=== PATIENT | female | born 1970 | race Caucasian/White ===

== ENCOUNTER → 2016-12-19 | Outpatient (CLI) | payer BC ==
[~2016-12-19] MED LIST: FEOSOL PO; IBUP-103 PO; NORE-38 PO
--- NOTE | 2016-12-19 16:44 | MAMMOGRAPHY REPORT ---
BILATERAL DIGITAL SCREENING MAMMOGRAM TOMOSYNTHESIS WITH CAD: 12/19/2016 TECHNIQUE: Breast tomosynthesis in addition to standard 2D mammography was performed. Current study was also evaluated with a Computer Aided Detection (CAD) system. COMPARISON: Comparison is made to exams dated: 12/18/2015 mammogram, 12/15/2014 mammogram, 12/28/2014 ul trasound, and 12/28/2014 mammogram - [facility]. BREAST COMPOSITION: There are scattered areas of fibroglandular density in both breasts. FINDINGS: No suspicious masses, calcifications, or areas of architectural distortion are noted in e ither breast. There has been no significant interval change compared to prior exams. Scattered bilat eral benign-appearing calcifications are not significantly changed. IMPRESSION: ACR BI-RADS CATEGORY 2: BENIGN There is no mammographic evidence of malignancy. A 1 year screening mammogram is recommended. The p atient will receive written notification of the results. Approximately 10% of breast cancers are not detected with mammography. A negative mammographic repor t should not delay biopsy if a clinically suggestive mass is present. Claire Green M.D. ah/:12/19/2016 15:44:42 [employer] Manager: Nenita SIMMONS(R)(M), [facility] letter sent: Normal 1/2 BI-RADS Code: ACR BI-RADS Category 2: Benign
== END | disposition home or self-care (01) ==
LOC: C.MAMM 10:03
PROVIDERS: ATTEND Family Medicine
DX: Z12.31 Encounter for screening mammogram for malignant neoplasm of breast (principal)

== ENCOUNTER → 2017-03-17 | Outpatient (CLI) | payer BC ==
[~2017-03-17] MED LIST changes: +GADAVIST IV PRN
--- NOTE | 2017-03-17 11:42 | DIAGNOSTIC IMAGING REPORT ---
ABDOMINAL MRI WITH AND WITHOUT INTRAVENOUS CONTRAST HISTORY: Evaluate CYST ON PANCREAS TECHNIQUE: Multiplanar multisequence MRI of the abdomen was performed both before and after the use of intravenous contrast. COMPARISON STUDY: Abdominal MRI 01/18/2016. FINDINGS: The liver, spleen, adrenal glands, left kidney are unremarkable. There is a 3 mm cyst within the lower pole the right kidney. No hydronephrosis. No retroperitoneal lymphadenopathy. Normal gallbladder. The visualized loops of bowel show no wall thickening or obstruction. There again noted 3 cystic lesions within the pancreas. The 2 lobular cystic foci at the pancreatic body measured 11 9 mm and remain unchanged. 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 The main pancreatic duct is normal and course and caliber. No filling defects within the normal caliber common bile duct. There is also stable 9 mm cystic lesion abutting the anterior inferior surface of the pancreatic head. This does not connect to the main pancreatic duct. This could represent an exophytic serous cystadenoma or a small duplication cyst. There is a 4.6 cm intramural fibroid within the left side of the uterus. IMPRESSION: Stable cystic lesions within the pancreas as described above. An additional one year MRI follow can be performed to ensure stability. Electronically signed by: Raúl Segura M.D. 03/17/2017 11:40 AM Dictated Date/Time: 03/17/2017 11:31 AM
== END | disposition home or self-care (01) ==
LOC: C.MRI 09:56
PROVIDERS: ATTEND Internal Medicine Gastroenterology
DX: K86.2 Cyst of pancreas (principal)

== ENCOUNTER → 2017-12-25 | Outpatient (CLI) | payer BC ==
[~2017-12-25] MED LIST changes: -GADAVIST IV PRN
--- NOTE | 2017-12-25 14:59 | MAMMOGRAPHY REPORT ---
BILATERAL DIGITAL SCREENING MAMMOGRAM TOMOSYNTHESIS WITH CAD: 12/25/2017 CLINICAL HISTORY: Routine screening. Patient has no complaints. TECHNIQUE: Breast tomosynthesis in addition to standard 2D mammography was performed. Current study was also evaluated with a Computer Aided Detection (CAD) system. COMPARISON: Comparison is made to exams dated: 12/19/2016 mammogram, 12/18/2015 mammogram, 12/28/2014 ma mmogram, 12/28/2014 ultrasound, and 12/15/2014 mammogram - [facility]. BREAST COMPOSITION: There are scattered areas of fibroglandular density in both breasts. FINDINGS: No suspicious masses, calcifications, or areas of architectural distortion are noted in ei ther breast. There has been no significant interval change compared to prior exams. Scattered bilater al benign-appearing calcifications are not significantly changed. Small circumscribed benign-appeari ng mass in the left central breast is smaller compared to the 2015 exam and is benign and compatible with a cyst. IMPRESSION: ACR BI-RADS CATEGORY 2: BENIGN There is no mammographic evidence of malignancy. A 1 year screening mammogram is recommended. The pa tient will receive written notification of the results. Approximately 10% of breast cancers are not detected with mammography. A negative mammographic report should not delay biopsy if a clinically suggestive mass is present. Claire Green M.D. /:12/25/2017 12:29:18 Campaign Consultant: Maria D CARDONA)([place]), [facility] letter sent: Normal 1/2 BI-RADS Code: ACR BI-RADS Category 2: Benign
== END | disposition home or self-care (01) ==
LOC: C.MAMM 09:42
PROVIDERS: ATTEND Nurse Practitioner Family
DX: Z12.31 Encounter for screening mammogram for malignant neoplasm of breast (principal)

== ENCOUNTER 2024-08-09 09:56 | Inpatient (IN) ==
--- NOTE | 2024-08-09 10:14 | Emergency Department Note ---
Impression & Plan Pyelonephritis, UTI (urinary tract infection), Acute flank pain, Hypotension ED Provider Note NAME: ERNST HALEY AGE: 54 SEX: F : 1970 ARRIVES VIA: Ambulance INFORMANT: Patient ED PROVIDER(S): Jose Peck DO CHIEF COMPLAINT: Right flank pain HPI: Patient is a 54-year-old female who presents to the ER for right flank pain. She notes she was treated for UTI previously and just finished up antibiotics. She started having severe pain in the right flank. She she got up this morning as any kind of movement including twisting, turning, bending that makes it significantly worse. The pain got severe and she became lightheaded and sat down. She did pass out. She notes that she has severe pain with any movement. No chest pain or shortness of breath preceding or following the event. After she passed out which lasted for about 30 seconds per report from EMS she had nausea. No dysuria, urgency, or frequency. No other exacerbating or remitting factors. She notes that she was on antibiotics for UTI and finished them up about 5 days ago. She was having burning with urination at that time. The symptoms have resolved. ADDITIONAL HISTORY OBTAINED: Per HPI Chronic Medical/Social Conditions Affecting Care: Per HPI PAST MEDICAL HISTORY:See Below PAST SURGICAL HISTORY:See Below FAMILY HISTORY:See Below SOCIAL HISTORY:See Below HOME MEDICATIONS:See Below ALLERGIES:See Below VITALS:See Below PHYSICAL EXAMINATION: GENERAL: Sitting up in bed, alert, well appearing, well nourished, no distress, non-toxic EYE EXAM: normal conjunctiva. OROPHARYNX: no exudate, no erythema, lips, buccal mucosa, and tongue normal and mucous membranes are moist NECK: supple, no nuchal rigidity, no adenopathy, non-tender LUNGS: Clear to auscultation. Normal chest wall mechanics HEART: no murmurs, S1 normal and S2 normal ABDOMEN: abdomen soft, non-tender, normo-active bowel sounds, no masses, no rebound or guarding. BACK: Back is symmetrical on inspection and there is no deformity, no midline tenderness, no CVA tenderness but severe pain in the right lower lumbar paraspinal region. UPPER EXTREMITIES: upper extremities are grossly normal. LOWER EXTREMITIES: No pitting edema. NEURO EXAM: Normal sensorium, cranial nerves II-XII grossly intact, normal speech, no gross weakness of arms, no gross weakness of legs. No drift. Finger to nose intact. Gross sensation intact. MEDICAL DECISION MAKING: Patient is a 54-year-old female who presents ER for the above-stated complaint. IV was established medicos obtained. Labs show no significant leukocytosis or anemia. D-dimer was negative and a low risk patient would not be pursued any further. BMP along with LFTs bilirubin and lipase unremarkable. Troponin was negative. UA is consistent with UTI. CT abdomen pelvis and lumbar spine showed no acute pathology. Chest x-ray was clean. Patient was updated at bedside. Systolic blood pressures dropped into the 80s. Baselines appear to be 120s to 130s. Was given IV fluids. IV antibiotics. Updated bedside. Discussed case with the hospitalist for further evaluation in the setting of syncope with hypotension and UTI. Consults/Care Managements Discussions: Per [facility] Triage Nursing notes reviewed. Limited review of prior medical records performed Vital Signs: reviewed and remarkable for no significant abnormalities Differential diagnosis: Differential diagnosis includes etiologies such as vasovagal event, infection, hypoglycemia, electrolyte abnormalities, cardiac sources, intracerebral event, toxicologic, neurologic, as well as others were entertained. ER treatment provided: See below Diagnostics interpreted by me include EKG and cardiac monitoring as listed below: -Cardiac Monitoring: An order was placed for continuous cardiac monitoring. The monitor shows a rate of 70 with sinus rhythm. -ECG: Sinus rhythm rate of 69 Normal axis No PVCs QTc 458 -Laboratory studies:Interpreted by me as stated above in MDM and shown below. Imaging studies: Xrays: As interpreted by me: Portable AP report 1 view of the chest shows no focal M-Trate CTs show: CT abdomen pelvis and lumbar spine showed no acute pathology Procedures:none Critical Care: None Past Med/Surg History Problem List (Updated 08/09/24 @ 16:48 by Raúl Muñiz PA-C) Hypotension Hypothyroidism Pyelonephritis Syncope Paresthesia of arm Pain, generalized Sjogren syndrome, unspecified Screening for colon cancer Leiomyoma of uterus Encounter for prescription of oral contraceptives Encounter for gynecological examination with abnormal finding Menorrhagia with regular cycle Medical History (Updated 08/09/24 @ 16:48 by Raúl Muñiz PA-C) 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 with MRIs/EGDs Anemia H/O weight disorder H/O alopecia Leiomyoma of uterus Menorrhagia with regular cycle Iron deficiency anemia due to chronic blood loss Surgical History (Updated 01/08/22 @ 09:05 by Krupa Peña RN) History of esophagogastroduodenoscopy (EGD) History of colonoscopy History of abdominoplasty History of wisdom tooth extraction S/P tubal ligation S/P section x2 Family History (Updated 01/08/22 @ 09:06 by Krupa Peña RN) Father Cardiac disorder Mother Hypertension Family history of reaction to anesthesia difficulty waking Social History (Updated 12/03/21 @ 09:[address] LPN) Smoking Status: Never smoker Second Hand Exposure: No; Do You Dip or Chew Tobacco: No; Hx Alcohol Use: No Hx Substance Use: No Preferred Language: Barbadian Communication Ability: Effective Head Inspector Required: No Beliefs That Will Affect Care: None marital status: Current Living Situation: Spouse and Family Current Living Situation Comment: lives with and kids Feels Safe at Home: Yes Assistive Devices: Glasses Allergies Allergies Allergy/AdvReac Type Severity Reaction Status Date / Time black cohosh [From Estroven] Allergy Intermediate Hives Verified 03/04/24 11:49 gabapentin Allergy Intermediate DIzziness Verified 03/04/24 11:49 and severe anxiety magnolia bark [From Estroven] Allergy Intermediate Hives Verified 03/04/24 11:49 soybean [From Estroven] Allergy Intermediate Hives Verified 03/04/24 11:49 Home Meds Home Medications Medication Instructions Recorded Confirmed levothyroxine 75 mcg capsule 75 mcg PO DAILY 07/09/23 03/04/24 cyclobenzaprine 5 mg tablet 5 mg PO DIRECTED 08/09/24 Previous Rx's Medication Instructions Recorded hydroxychloroquine 200 mg tablet 200 mg PO DAILY #90 tabs 06/22/24 Results & Data (ED) Vital Signs Vital Signs - 24 hr 08/09/24 10:01 08/09/24 10:05 08/09/24 12:10 Temperature 36.5 C Temperature Source Temporal Artery Scan Pulse Rate 77 72 Pulse Rate [Left Apical] 66 Respiratory Rate 16 16 Respiratory Effort / Characteristics Non-Labored Spontaneous Non-Labored Spontaneous Respiratory Depth Normal Normal Respiratory Pattern Regular Regular Blood Pressure 114/59 L Blood Pressure [Left Arm] 103/67 Blood Pressure Mean 77 Blood Pressure Mean [Left Arm] 79 Blood Pressure Position Sitting Blood Pressure Position [Left Arm] Semi-fowlers Pulse Oximetry 98 100 Oxygen Delivery Method Room Air Room Air Sepsis Recent Fever Within 48 Hours No Sepsis New/Unexplained Change in Mental Status N/A Sepsis Action Taken by Nursing No Action Required 08/09/24 12:27 08/09/24 12:30 08/09/24 12:33 Temperature Temperature Source Pulse Rate 64 66 Pulse Rate [Left Apical] Respiratory Rate 17 14 Respiratory Effort / Characteristics Respiratory Depth Respiratory Pattern Blood Pressure 107/64 Blood Pressure [Left Arm] Blood Pressure Mean 75 Blood Pressure Mean [Left Arm] Blood Pressure Position Blood Pressure Position [Left Arm] Pulse Oximetry 99 98 Oxygen Delivery Method Room Air Room Air Sepsis Recent Fever Within 48 Hours Sepsis New/Unexplained Change in Mental Status Sepsis Action Taken by Nursing 08/09/24 13:03 08/09/24 13:33 08/09/24 13:42 Temperature Temperature Source Pulse Rate 67 68 69 Pulse Rate [Left Apical] Respiratory Rate 22 16 21 Respiratory Effort / Characteristics Respiratory Depth Respiratory Pattern Blood Pressure Blood Pressure [Left Arm] Blood Pressure Mean Blood Pressure Mean [Left Arm] Blood Pressure Position Blood Pressure Position [Left Arm] Pulse Oximetry 100 100 99 Oxygen Delivery Method Room Air Room Air Room Air Sepsis Recent Fever Within 48 Hours Sepsis New/Unexplained Change in Mental Status Sepsis Action Taken by Nursing 08/09/24 14:06 08/09/24 14:30 08/09/24 14:31 Temperature Temperature Source Pulse Rate 69 74 Pulse Rate [Left Apical] Respiratory Rate 17 Respiratory Effort / Characteristics Respiratory Depth Respiratory Pattern Blood Pressure 89/62 L Blood Pressure [Left Arm] Blood Pressure Mean 69 Blood Pressure Mean [Left Arm] Blood Pressure Position Blood Pressure Position [Left Arm] Pulse Oximetry 97 Oxygen Delivery Method Room Air Sepsis Recent Fever Within 48 Hours Sepsis New/Unexplained Change in Mental Status Sepsis Action Taken by Nursing 08/09/24 14:47 08/09/24 14:54 08/09/24 15:01 Temperature Temperature Source Pulse Rate 73 75 Pulse Rate [Left Apical] Respiratory Rate 16 Respiratory Effort / Characteristics Respiratory Depth Respiratory Pattern Blood Pressure 85/65 L Blood Pressure [Left Arm] Blood Pressure Mean 68 Blood Pressure Mean [Left Arm] Blood Pressure Position Blood Pressure Position [Left Arm] Pulse Oximetry 96 Oxygen Delivery Method Room Air Sepsis Recent Fever Within 48 Hours Sepsis New/Unexplained Change in Mental Status Sepsis Action Taken by Nursing 08/09/24 15:03 08/09/24 15:31 08/09/24 15:33 Temperature Temperature Source Pulse Rate 74 70 Pulse Rate [Left Apical] 70 Respiratory Rate 15 18 16 Respiratory Effort / Characteristics Non-Labored Spontaneous Respiratory Depth Normal Respiratory Pattern Regular Blood Pressure Blood Pressure [Left Arm] 88/54 L Blood Pressure Mean Blood Pressure Mean [Left Arm] 65 Blood Pressure Position Blood Pressure Position [Left Arm] Pulse Oximetry 99 99 99 Oxygen Delivery Method Room Air Room Air Room Air Sepsis Recent Fever Within 48 Hours Sepsis New/Unexplained Change in Mental Status Sepsis Action Taken by Nursing 08/09/24 15:45 08/09/24 15:54 08/09/24 15:57 Temperature Temperature Source Pulse Rate 69 66 67 Pulse Rate [Left Apical] Respiratory Rate 20 15 21 Respiratory Effort / Characteristics Respiratory Depth Respiratory Pattern Blood Pressure Blood Pressure [Left Arm] Blood Pressure Mean Blood Pressure Mean [Left Arm] Blood Pressure Position Blood Pressure Position [Left Arm] Pulse Oximetry 99 99 99 Oxygen Delivery Method Room Air Room Air Room Air Sepsis Recent Fever Within 48 Hours Sepsis New/Unexplained Change in Mental Status Sepsis Action Taken by Nursing 08/09/24 16:00 08/09/24 16:06 08/09/24 16:27 Temperature Temperature Source Pulse Rate 65 Pulse Rate [Left Apical] Respiratory Rate 16 Respiratory Effort / Characteristics Respiratory Depth Respiratory Pattern Blood Pressure 108/67 Blood Pressure [Left Arm] Blood Pressure Mean 73 Blood Pressure Mean [Left Arm] Blood Pressure Position Blood Pressure Position [Left Arm] Pulse Oximetry 100 99 Oxygen Delivery Method Room Air Sepsis Recent Fever Within 48 Hours Sepsis New/Unexplained Change in Mental Status Sepsis Action Taken by Nursing Laboratory Data 08/09/24 10:08 08/09/24 10:08 Lab Results 08/09/24 08/09/24 08/09/24 Range/Units 10:08 12:49 13:00 WBC 7.68 (4.8-10.8) K/ul RBC 4.36 (4.20-5.40) M/uL Hgb 13.2 (12.0-16.0) g/dl Hct 40.2 (37.0-47.0) % MCV 92.2 (80.0-100.0) fL MCH 30.3 (25.0-34.0) pg MCHC 32.8 (32.0-36.0) g/dL RDW Std Deviation 46.6 H (36.4-46.3) fL RDW Coeff of Meredith 13.6 (11.5-14.5) % Plt Count 253 (130-400) K/uL MPV 10.5 (9.4-12.4) fL Immature Gran % (Auto) 0.4 % Neut % (Auto) 72.9 % Lymph % (Auto) 21.0 % Woodruff % (Auto) 3.3 % Eos % (Auto) 1.7 % Baso % (Auto) 0.7 % Neut # (Auto) 5.61 (1.40-6.50) K/uL Lymph # (Auto) 1.61 (1.20-3.40) K/uL Woodruff # (Auto) 0.25 (0.11-0.59) K/uL Eos # (Auto) 0.13 (0.00-0.50) K/uL Baso # (Auto) 0.05 (0.00-0.20) K/uL Immature Gran # (Auto) 0.03 (0.01-0.20) K/uL D-Dimer 320 (0-500) ug/L FEU Sodium 139 (136-145) mmol/L Potassium 4.5 (3.5-5.1) mmol/L Chloride 105 (98-107) mmol/L Carbon Dioxide 24 (21-32) mmol/L Anion Gap 10 (3-11) BUN 17 (6-23) mg/dl Creatinine 0.86 (0.6-1.2) mg/dl Est Cr Clr Drug Dosing 60.0 ml/min Est GFR ( Amer) 88.8 ml/min Est GFR (Non-Af Amer) 76.6 ml/min BUN/Creatinine Ratio 19.8 (10-20) Glucose 156 H (70-99(Fasting)) mg/dl Calcium 9.8 (8.6-10.3) mg/dl Total Bilirubin 0.5 (0.2-1.0) mg/dl AST 17 (13-39) U/L ALT 16 (7-52) U/L Alkaline Phosphatase 59 (34-104) U/L Troponin I High Sens Cancelled 2.4 Total Protein 7.2 (6.0-8.3) gm/dl Albumin 4.5 (3.4-5.0) gm/dl Globulin 2.7 (2.5-4.0) gm/dl Albumin/Globulin Ratio 1.7 (0.9-2) Lipase 19 (11-82) U/L Urine Color Yellow Urine Appearance Clear (Clear) Urine pH 6.5 (4.5-7.5) Ur Specific [place] 1.017 (1.000-1.030) Urine Protein Negative (Negative) Urine Glucose (UA) Negative (Negative) Urine Ketones 1+ H (Negative) Urine Blood Trace H (Negative) Urine Nitrite Negative (Negative) Urine Bilirubin Negative (Negative) Urine Urobilinogen Negative (Negative) Ur Leukocyte Esterase 3+ H (Negative) Urine WBC (Auto) >50 H (0-5) /hpf Urine RBC (Auto) 0-2 (0-2) /hpf U Hyaline Cast (Auto) 0-2 (0-2) /lpf U Epithel Cells (Auto) 3-5 H (0-2) /hpf Urine Bacteria (Auto) None Seen (None Seen) 08/09/24 08/09/24 Range/Units 15:04 Unknown WBC (4.8-10.8) K/ul RBC (4.20-5.40) M/uL Hgb (12.0-16.0) g/dl Hct (37.0-47.0) % MCV (80.0-100.0) fL MCH (25.0-34.0) pg MCHC (32.0-36.0) g/dL RDW Std Deviation (36.4-46.3) fL RDW Coeff of Meredith (11.5-14.5) % Plt Count (130-400) K/uL MPV (9.4-12.4) fL Immature Gran % (Auto) % Neut % (Auto) % Lymph % (Auto) % Woodruff % (Auto) % Eos % (Auto) % Baso % (Auto) % Neut # (Auto) (1.40-6.50) K/uL Lymph # (Auto) (1.20-3.40) K/uL Woodruff # (Auto) (0.11-0.59) K/uL Eos # (Auto) (0.00-0.50) K/uL Baso # (Auto) (0.00-0.20) K/uL Immature Gran # (Auto) (0.01-0.20) K/uL D-Dimer (0-500) ug/L FEU Sodium (136-145) mmol/L Potassium (3.5-5.1) mmol/L Chloride (98-107) mmol/L Carbon Dioxide (21-32) mmol/L Anion Gap (3-11) BUN (6-23) mg/dl Creatinine (0.6-1.2) mg/dl Est Cr Clr Drug Dosing ml/min Est GFR ( Amer) ml/min Est GFR (Non-Af Amer) ml/min BUN/Creatinine Ratio (10-20) Glucose (70-99(Fasting)) mg/dl Calcium (8.6-10.3) mg/dl Total Bilirubin (0.2-1.0) mg/dl AST (13-39) U/L ALT (7-52) U/L Alkaline Phosphatase (34-104) U/L Troponin I High Sens < 2.3 Cancelled Total Protein (6.0-8.3) gm/dl Albumin (3.4-5.0) gm/dl Globulin (2.5-4.0) gm/dl Albumin/Globulin Ratio (0.9-2) Lipase (11-82) U/L Urine Color Urine Appearance (Clear) Urine pH (4.5-7.5) Ur Specific [place] (1.000-1.030) Urine Protein (Negative) Urine Glucose (UA) (Negative) Urine Ketones (Negative) Urine Blood (Negative) Urine Nitrite (Negative) Urine Bilirubin (Negative) Urine Urobilinogen (Negative) Ur Leukocyte Esterase (Negative) Urine WBC (Auto) (0-5) /hpf Urine RBC (Auto) (0-2) /hpf U Hyaline Cast (Auto) (0-2) /lpf U Epithel Cells (Auto) (0-2) /hpf Urine Bacteria (Auto) (None Seen) Administered Medications Sodium Chloride (Nss) 1,000 mls @ 999 mls/hr IV .Q1H1M ONE Stop: 08/09/24 16:40 Last Admin: 08/09/24 15:53 Dose: 999 mls/hr Documented By: DM Discontinued Medications Sodium Chloride (Nss) 1,000 mls @ 999 mls/hr IV .Q1H1M ONE Stop: 08/09/24 11:11 Last Infusion: 08/09/24 12:11 Dose: Infused Documented By: Admin: 08/09/24 10:22 Dose: 999 mls/hr Documented By: LIZZETH Ceftriaxone Sodium (Rocephin) 2,000 mg in 50 mls @ 100 mls/hr IV NOW STA Stop: 08/09/24 14:43 Last Infusion: 08/09/24 15:29 Dose: Infused Documented By: Admin: 08/09/24 14:27 Dose: 100 mls/hr Documented By: MEHUL Ioversol (Optiray 320 100ml) 92 ml IV ONCE ONE Stop: 08/09/24 13:26 Last Admin: 08/09/24 13:25 Dose: 92 ml Documented By: MY Ketorolac Tromethamine (Ketorolac Tromethamine 15 Mg/Ml Vial) 10 mg IV NOW ONE Stop: 08/09/24 10:12 Last Admin: 08/09/24 10:25 Dose: 10 mg Documented By: LIZZETH Morphine Sulfate (Morphine Sulfate 4 Mg/Ml 1 Ml Carp\Vial) 4 mg IV NOW STA Stop: 08/09/24 10:13 Last Admin: 08/09/24 10:24 Dose: 4 mg Documented By: LIZZETH Imaging Data Radiologist's Impression: Chest X-Ray 08/09/24 10:10 XR chest 1V portable HISTORY: 54 years-old Female Chest pain, nonspecific COMPARISON: 03/29/2021 TECHNIQUE: AP view of the chest FINDINGS: Cardiomediastinal and hilar silhouettes are within normal limits. No pneumothorax, pleural effusion or airspace consolidation. Bones appear intact. IMPRESSION: No acute process. ACT 112: Negative or not required by law. The above report was generated using voice recognition software. It may contain grammatical, syntax or spelling errors. Electronically signed by: Young Rayo M.D. 08/09/2024 10:[address] 08/09/24 10:11 CT lumbar spine w con HISTORY: 54 years-old Female lower back pain . Back pain COMPARISON: CT abdomen and pelvis of same day TECHNIQUE: Multiple axial CT images of the lumbar spine were obtained with IV contrast. A dose lowering technique was used consistent with the principals of FRANSISCA. FINDINGS: Clear lung bases. No free air. The intra-abdominal structures will be dictated separately. Partially imaged rectal wall thickening with probable uterine fibroids. Mild lumbar levoscoliosis. No acute fracture, subluxation or endplate erosion. There is mild to moderate degeneration of the SI joints. No significant central canal or neural foraminal narrowing identified by CT. Intervertebral disc spaces are generally well maintained. IMPRESSION: 1. No acute lumbar spine fracture or subluxation. 2. Mild levoscoliosis. 3. Please refer to the same day CT abdomen and pelvis study for additional findings. ACT 112: Negative or not required by law. The above report was generated using voice recognition software. It may contain grammatical, syntax or spelling errors. Electronically signed by: Young Rayo M.D. 08/09/2024 2:00 PM Abdomen/Pelvis CT 08/09/24 12:26 CT abd pelvis IV con only CLINICAL HISTORY: abd pain adn r back pain TECHNIQUE: Helical axial images of the abdomen and pelvis were obtained and displayed. Automated dose lowering techniques and/or adjustment according to patient size were utilized for this exam. This exam was performed with intravenous contrast. COMPARISON: Comparison is made to MRI abdomen 09/04/2022 and MRI enterography 04/28/2018 FINDINGS: Lower chest: No acute abnormality. Liver: Unremarkable. No focal lesions are seen. Gallbladder and biliary tree: No calcified gallstones. Normal caliber wall. No intra- or extrahepatic biliary ductal dilation. Pancreas: A few cystic foci are seen in the pancreas compatible with IPMN. Spleen: Unremarkable. Adrenals: Unremarkable. Kidneys and ureters: Unremarkable. Bladder: Limited evaluation due to underdistention. Reproductive organs: Partial visualization of a enhancing mass at the base of the uterus measuring 44 mm. Bowel: The appendix is normal. Lymph nodes Retroperitoneal: Unremarkable. Pelvic: Unremarkable. Mesenteric: Unremarkable. Peritoneum: Normal. Vessels: Unremarkable. Abdominal wall: Unremarkable. Bones: Unremarkable. IMPRESSION: 1. No acute abnormality to explain abdominal and back pain. 2. Basal uterus mass likely represents a fibroid and was present in the exam of 2018. ACT 112: Negative or not required by law. Electronically signed by: Seb Carver M.D. 08/09/2024 2:15 PM Discharge Plan Visit Data Chief Complaint: Syncope ED Provider: Jose Peck Discharge Problem: Pyelonephritis, UTI (urinary tract infection), Acute flank pain, Hypotension Forms Stand Alone Forms: [facility] Prescriptions Prescriptions: No Action hydroxychloroquine 200 mg tablet 200 mg PO DAILY Qty: 90 2RF levothyroxine 75 mcg capsule 75 mcg PO DAILY cyclobenzaprine 5 mg tablet 5 mg PO DIRECTED Referrals Referrals: Wendy Cook MD [Primary Care Provider] - Discharge Problem: UTI (urinary tract infection) Qualifiers: Urinary tract infection type: site unspecified Hematuria presence: without hematuria Qualified Code(s): N39.0 - Urinary tract infection, site not specified Hypotension Qualifiers: Hypotension type: unspecified hypotension type Qualified Code(s): I95.9 - Hypotension, unspecified
[2024-08-09] MEDS: SODIUM CHLORIDE 0.9% 1,000 ML IV ONE ×2 (10:22→15:53)
[2024-08-09] MEDS: MoRPHine SULFATE 4 MG/ML 1 ML CARP\\VIAL IV STA (10:24)
[2024-08-09] MEDS: KETOROLAC TROMETHAMINE 15 MG/ML VIAL IV ONE (10:25)
[2024-08-09 10:27] LABS: Basophils # (auto) 0.05 K/uL (0.00-0.20); Basophils % (auto) 0.7 %; Eosinophils # (auto) 0.13 K/uL (0.00-0.50); Eosinophils % (auto) 1.7 %; Hematocrit (blood only) 40.2 % (37.0-47.0); Hemoglobin 13.2 g/dl (12.0-16.0); Immature Granulocytes # (auto) 0.03 K/uL (0.01-0.20); Immature Granulocytes % (auto) 0.4 %; Lymphocytes # (auto) 1.61 K/uL (1.20-3.40); Mean Corpuscular Hemoglobin 30.3 pg (25.0-34.0); Mean Corpuscular Hgb Conc 32.8 g/dL (32.0-36.0); Mean Corpuscular Volume 92.2 fL (80.0-100.0); Mean Platelet Volume 10.5 fL (9.4-12.4); Monocytes # (auto) 0.25 K/uL (0.11-0.59); Monocytes % (auto) 3.3 %; Neutrophils # (auto) 5.61 K/uL (1.40-6.50); Neutrophils % (auto) 72.9 %; Platelet Count 253 K/uL (130-400); RDW Coefficient of Variation 13.6 % (11.5-14.5); RDW Standard Deviation 46.6 fL (36.4-46.3); Red Blood Count 4.36 M/uL (4.20-5.40); White Blood Count 7.68 K/ul (4.8-10.8)
--- NOTE | 2024-08-09 10:34 | XRay Report ---
XR chest 1V portable HISTORY: 54 years-old Female Chest pain, nonspecific COMPARISON: 03/29/2021 TECHNIQUE: AP view of the chest FINDINGS: Cardiomediastinal and hilar silhouettes are within normal limits. No pneumothorax, pleural effusion o r airspace consolidation. Bones appear intact. IMPRESSION: No acute process. ACT 112: Negative or not required by law. The above report was generated using voice recognition software. It may contain grammatical, syntax o r spelling errors. Electronically signed by: Young Rayo M.D. 08/09/2024 10:33 AM
--- NOTE | 2024-08-09 11:07 | Electrocardiogram Report ---
Test Reason : Blood Pressure : */* mmHG Vent. Rate : 69 BPM Atrial Rate : 69 BPM P-R Int : 150 ms QRS Dur : 66 ms QT Int : 428 ms P-R-T Axes : 81 43 84 degrees QTcB Int : 458 ms Normal sinus rhythm Nonspecific T wave abnormality Abnormal ECG When compared with ECG of 29-Mar-2021 17:37, Nonspecific T wave abnormality now evident in Lateral leads Confirmed by Jamarcus Valadez ([id number]) on 08/09/2024 11:06:45 AM Referred By: Confirmed By: Jamarcus Valadez
[2024-08-09 11:14] LABS: D Dimer 320 ug/L FEU (0-500)
[2024-08-09 12:49] LABS: Albumin Level 4.5 gm/dl (3.4-5.0); Bilirubin,Total 0.5 mg/dl (0.2-1.0); Calcium 9.8 mg/dl (8.6-10.3); Potassium 4.5 mmol/L (3.5-5.1)
[2024-08-09 12:55] LABS: Albumin Globulin Ratio 1.7 (0.9-2); BUN Creatinine Ratio 19.8 (10-20); Est GFR (African American) 88.8 ml/min; Est GFR (Non-African American) 76.6 ml/min; Globulin 2.7 gm/dl (2.5-4.0); Total Protein 7.2 gm/dl (6.0-8.3)
[2024-08-09 13:23] LABS: Appearance Urine Clear (Clear); Bacteria Urine Automated None Seen (None Seen); Bilirubin Urine Negative (Negative); Blood Urine Trace (Negative); Cast Urine Automated 0-2 /lpf (0-2); Color Urine Yellow; Glucose Urine UA Negative (Negative); Ketones Urine 1+ (Negative); Leukocyte Esterase Urine 3+ (Negative); Nitrite Urine Negative (Negative); Protein Urine Negative (Negative); RBC Urine Automated 0-2 /hpf (0-2); Specific Gravity Urine 1.017 (1.000-1.030); Urobilinogen Urine Negative (Negative); WBC Urine Automated >50 /hpf (0-5); pH Urine 6.5 (4.5-7.5)
[2024-08-09] MEDS: OPTIRAY 320 100ml IV ONE (13:25)
--- NOTE | 2024-08-09 14:02 | CT Scan Report ---
CT lumbar spine w con HISTORY: 54 years-old Female lower back pain . Back pain COMPARISON: CT abdomen and pelvis of same day TECHNIQUE: Multiple axial CT images of the lumbar spine were obtained with IV contrast. A dose loweri ng technique was used consistent with the principals of FRANSISCA. FINDINGS: Clear lung bases. No free air. The intra-abdominal structures will be dictated separately. Partially imaged rectal wall thickening with probable uterine fibroids. Mild lumbar levoscoliosis. No acute fracture, subluxation or endplate erosion. There is mild to moder ate degeneration of the SI joints. No significant central canal or neural foraminal narrowing identif ied by CT. Intervertebral disc spaces are generally well maintained. IMPRESSION: 1. No acute lumbar spine fracture or subluxation. 2. Mild levoscoliosis. 3. Please refer to the same day CT abdomen and pelvis study for additional findings. ACT 112: Negative or not required by law. The above report was generated using voice recognition software. It may contain grammatical, syntax o r spelling errors. Electronically signed by: Young Rayo M.D. 08/09/2024 2:00 PM
--- NOTE | 2024-08-09 14:17 | CT Scan Report ---
CT abd pelvis IV con only CLINICAL HISTORY: abd pain adn r back pain TECHNIQUE: Helical axial images of the abdomen and pelvis were obtained and displayed. Automated dose lowering techniques and/or adjustment according to patient size were utilized for this exam. This e xam was performed with intravenous contrast. COMPARISON: Comparison is made to MRI abdomen 09/04/2022 and MRI enterography 04/28/2018 FINDINGS: Lower chest: No acute abnormality. Liver: Unremarkable. No focal lesions are seen. Gallbladder and biliary tree: No calcified gallstones. Normal caliber wall. No intra- or extrahepatic biliary ductal dilation. Pancreas: A few cystic foci are seen in the pancreas compatible with IPMN. Spleen: Unremarkable. Adrenals: Unremarkable. Kidneys and ureters: Unremarkable. Bladder: Limited evaluation due to underdistention. Reproductive organs: Partial visualization of a enhancing mass at the base of the uterus measuring 44 mm. Bowel: The appendix is normal. Lymph nodes Retroperitoneal: Unremarkable. Pelvic: Unremarkable. Mesenteric: Unremarkable. Peritoneum: Normal. Vessels: Unremarkable. Abdominal wall: Unremarkable. Bones: Unremarkable. IMPRESSION: 1. No acute abnormality to explain abdominal and back pain. 2. Basal uterus mass likely represents a fibroid and was present in the exam of 2018. ACT 112: Negative or not required by law. Electronically signed by: Seb Carver M.D. 08/09/2024 2:15 PM
[2024-08-09] MEDS: cefTRIAXone SODIUM 2,000 MG/50 ML BAG IV STA (14:27)
--- NOTE | 2024-08-09 15:59 | History & Physical Report ---
Date of Service August 09, 2024 Assessment & Plan (1) Syncope: Plan: 45-second syncopal episode on the morning of 08/09 Patient felt dizzy and knew she was about to faint and sat down; no head strike No history of syncope Patient attributes passing out to her severe right lower back pain, which has been worsening over the past 2 days Will defer echo at this time Continuous telemetry monitoring A.m. CBC, BMP (2) Pyelonephritis: Plan: Suspected right sided pyelonephritis secondary to worsening of right lower back pain with radiation along the flank to the groin Patient recently finished a course of Keflex 500 mg p.o. BID x 7 days for UTI (Rx on 07/26) No leukocytosis; afebrile UA positive on ED arrival CT A/P was done with contrast; unable to rule out kidney stone; no prior history of kidney stones Clinically, patient's burning with urination and hematuria have resolved Rocephin 2000 mg IV q24h Follow current UCx (3) Hypotension: Plan: Patient is mildly hypotensive in the ED on arrival; dropped down to 85/65 Responded to IV fluids; NSS 1000 mL IV x 2 IVF overnight with LR at 80mL/hr x 1 L Continue to monitor BP overnight (4) Sjogren syndrome, unspecified: Plan: Continue hydroxychloroquine (5) Hypothyroidism: Plan: Continue levothyroxine Plan Disposition: Obs -admit to [facility] telemetry Full code Regular diet VTE PPx: SCDs History of Present Illness Chief Complaint: Syncope, Right lower back/flank pain Primary Care Provider: Wendy Cook MD [facility] is a 54-year-old female with PMH of Sjogren's syndrome, and uterine leiomyomas. She presented on 08/09 for a syncopal episode. Patient passed out for approximately 45 seconds around 9 AM this morning. Son was present at the time and witnessed the event. Patient reports that she "knew" that she was going to pass out as she developed blurry vision, dizziness, and her hearing went out. She then sat down in a chair and syncopized with full LOC. No head strike. She denies any prior episodes of fainting. Son did not witness any seizure-like activity. Patient believes she passed out secondary to her right lower back and flank pain, which is gotten worse over the past 2 days. She was recently treated with Keflex 500 mg p.o. BID x 7 days for UTI, and reports that she completed the course. Her burning with urination/blood in urine has resolved, however 2 days ago she developed worsening right back pain. She did not have back pain with the initial UTI. She describes the right lower back and flank pain as constant, sharp, and stabbing. The pain radiates around the flank and down towards her groin. It is exacerbated by movements, and she will eventually have spasms. She initially thought she might of pulled something, but denies any recent strenuous activity. She saw a doctor yesterday and was prescribed cyclobenzaprine 5 mg p.o. as needed for back spasms, but this has not helped. She rates the pain 10/10 at worst, 2/10 in the ED after receiving pain medication. She has not been taking any pain medicine at home; no recent NSAID use. She denies smoking, tobacco use, or recent alcohol use. She took her regular morning medications today; only recent change in medication was that her levothyroxine was decreased from 75 mcg --> 50 mcg daily. She is not currently on steroids for her Sjogren's. Patient denies prior history of kidney stones. Patient is hypotensive at 88/54 at time of admission; vitals otherwise stable. ED course: Rocephin 2000 mg IV NSS 1000 mL IV x 2 Toradol 10 mg IV Morphine 4 mg IV ROS: Patient endorses dizziness, blurry vision, syncope (which patient attributes to the right lower back pain), mild SANTOS, nausea/vomiting after passing out, Patient denies fever, chills, night-sweats, chest pain, SOB, cough, abdominal pain, diarrhea, changes in urine/stool habits, burning with urination (resolved), blood in urine/stool, saddle anesthesia, or numbness/tingling in the arms or legs. Allergies Allergy/AdvReac Type Severity Reaction Status Date / Time black cohosh [From [email or web address]] Allergy Intermediate Hives Verified 03/04/24 11:49 gabapentin Allergy Intermediate DIzziness Verified 03/04/24 11:49 and severe anxiety magnolia bark [From [email or web address]] Allergy Intermediate Hives Verified 03/04/24 11:49 soybean [From [email or web address]] Allergy Intermediate Hives Verified 03/04/24 11:49 Home Medications Medication Instructions Recorded Confirmed Type levothyroxine 75 mcg capsule 50 mcg PO DAILY 07/09/23 08/09/24 History hydroxychloroquine 200 mg tablet 200 mg PO DAILY #90 tabs 06/22/24 08/09/24 Rx Past Med/Surg History Problem List (Updated 08/09/24 @ 16:48 by Raúl Muñiz PA-C) Hypotension Hypothyroidism Pyelonephritis Syncope Paresthesia of arm Pain, generalized Sjogren syndrome, unspecified Screening for colon cancer Leiomyoma of uterus Encounter for prescription of oral contraceptives Encounter for gynecological examination with abnormal finding Menorrhagia with regular cycle Medical History (Updated 08/09/24 @ 16:48 by Raúl Muñiz PA-C) 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 with MRIs/EGDs Anemia H/O weight disorder H/O alopecia Leiomyoma of uterus Menorrhagia with regular cycle Iron deficiency anemia due to chronic blood loss Surgical History (Updated 01/08/22 @ 09:05 by Krupa Peña RN) History of esophagogastroduodenoscopy (EGD) History of colonoscopy History of abdominoplasty History of wisdom tooth extraction S/P tubal ligation S/P section x2 Family History (Updated 01/08/22 @ 09:06 by Krupa Peañ, MARLO) Father Cardiac disorder Mother Hypertension Family history of reaction to anesthesia difficulty waking Social History (Updated 12/03/21 @ 09:[address] LPN) Smoking Status: Never smoker Second Hand Exposure: No; Do You Dip or Chew Tobacco: No; Hx Alcohol Use: No Hx Substance Use: No Preferred Language: Yoruba Communication Ability: Effective Business Planning Director Required: No Beliefs That Will Affect Care: None marital status: Current Living Situation: Spouse and Family Current Living Situation Comment: lives with and kids Feels Safe at Home: Yes Assistive Devices: Glasses Review of Systems Review of Systems: See HPI above Physical Exam Physical Exam: General: no acute distress; pleasant affect; anxious; non-toxic appearing; well- nourished; cooperative; SpO2 N/A percent on RA HEENT: normocephalic, atraumatic; no scleral icterus; PERRLA; vision and hearing grossly intact Neck: supple; no lymphadenopathy; trachea midline Skin: warm, dry without signs of tenting; no cyanosis; no rashes, bruising, lesions, or erythema noted CV: chest wall NTP; RRR; S1/S2 normal; no murmurs/rubs/gallops; pulses intact and symmetric at radial, DP, and PT Lungs: no acute respiratory distress; symmetrical chest wall expansion; clear breath sounds across all lung florian w/o adventitious sounds; no wheezing ABD: Soft, NTP; BS present; no rebound/guarding; no distention; no rashes or bruising on the abdomen, flanks, or back Back: Upper spine NTP, lower spine NTP; negative CVA tenderness bilaterally MSK: no tics or fasciculations; no edema noted in the LEs b/l, nonerythematous Neuro: A&Ox3; normal mood and affect; fluent speech; no focal deficits; sensation grossly intact and symmetric in the LEs b/l Results & Data Results & Data Vital Signs (Past 12 Hours) Vital Signs Temp Pulse Pulse Resp BP BP Pulse Ox 08/09/24 15:31 70 18 88/54 L 99 08/09/24 15:03 74 15 99 08/09/24 15:01 85/65 L 08/09/24 14:54 75 16 96 08/09/24 14:47 73 08/09/24 14:31 89/62 L 08/09/24 14:30 74 17 08/09/24 14:06 69 97 08/09/24 13:42 69 21 99 08/09/24 13:33 68 16 100 08/09/24 13:03 67 22 100 08/09/24 12:33 66 14 98 08/09/24 12:30 107/64 08/09/24 12:27 64 17 99 08/09/24 12:10 66 16 103/67 100 08/09/24 10:05 72 08/09/24 10:01 36.5 C 77 16 114/59 L 98 O2 Del Method 08/09/24 15:31 Room Air 08/09/24 15:03 Room Air 08/09/24 15:01 08/09/24 14:54 Room Air 08/09/24 14:47 08/09/24 14:31 08/09/24 14:30 08/09/24 14:06 Room Air 08/09/24 13:42 Room Air 08/09/24 13:33 Room Air 08/09/24 13:03 Room Air 08/09/24 12:33 Room Air 08/09/24 12:30 08/09/24 12:27 Room Air 08/09/24 12:10 Room Air 08/09/24 10:05 08/09/24 10:01 Room Air Laboratory Results Abnormal lab results 08/09/24 08/09/24 Range/Units 10:08 13:00 RDW Std Deviation 46.6 H (36.4-46.3) fL Glucose 156 H (70-99(Fasting)) mg/dl Urine Ketones 1+ H (Negative) Urine Blood Trace H (Negative) Ur Leukocyte Esterase 3+ H (Negative) Urine WBC (Auto) >50 H (0-5) /hpf U Epithel Cells (Auto) 3-5 H (0-2) /hpf Diagnostic Findings Chest X-Ray 08/09/24 10:10 XR chest 1V portable HISTORY: 54 years-old Female Chest pain, nonspecific COMPARISON: 03/29/2021 TECHNIQUE: AP view of the chest FINDINGS: Cardiomediastinal and hilar silhouettes are within normal limits. No pneumothorax, pleural effusion or airspace consolidation. Bones appear intact. IMPRESSION: No acute process. ACT 112: Negative or not required by law. The above report was generated using voice recognition software. It may contain grammatical, syntax or spelling errors. Electronically signed by: Young Rayo M.D. 08/09/2024 10:[address] 08/09/24 10:11 CT lumbar spine w con HISTORY: 54 years-old Female lower back pain . Back pain COMPARISON: CT abdomen and pelvis of same day TECHNIQUE: Multiple axial CT images of the lumbar spine were obtained with IV contrast. A dose lowering technique was used consistent with the principals of ALARA. FINDINGS: Clear lung bases. No free air. The intra-abdominal structures will be dictated separately. Partially imaged rectal wall thickening with probable uterine fibroids. Mild lumbar levoscoliosis. No acute fracture, subluxation or endplate erosion. There is mild to moderate degeneration of the SI joints. No significant central canal or neural foraminal narrowing identified by CT. Intervertebral disc spaces are generally well maintained. IMPRESSION: 1. No acute lumbar spine fracture or subluxation. 2. Mild levoscoliosis. 3. Please refer to the same day CT abdomen and pelvis study for additional findings. ACT 112: Negative or not required by law. The above report was generated using voice recognition software. It may contain grammatical, syntax or spelling errors. Electronically signed by: Young Rayo M.D. 08/09/2024 2:00 PM Abdomen/Pelvis CT 08/09/24 12:26 CT abd pelvis IV con only CLINICAL HISTORY: abd pain adn r back pain TECHNIQUE: Helical axial images of the abdomen and pelvis were obtained and displayed. Automated dose lowering techniques and/or adjustment according to patient size were utilized for this exam. This exam was performed with intravenous contrast. COMPARISON: Comparison is made to MRI abdomen 09/04/2022 and MRI enterography 04/28/2018 FINDINGS: Lower chest: No acute abnormality. Liver: Unremarkable. No focal lesions are seen. Gallbladder and biliary tree: No calcified gallstones. Normal caliber wall. No intra- or extrahepatic biliary ductal dilation. Pancreas: A few cystic foci are seen in the pancreas compatible with IPMN. Spleen: Unremarkable. Adrenals: Unremarkable. Kidneys and ureters: Unremarkable. Bladder: Limited evaluation due to underdistention. Reproductive organs: Partial visualization of a enhancing mass at the base of the uterus measuring 44 mm. Bowel: The appendix is normal. Lymph nodes Retroperitoneal: Unremarkable. Pelvic: Unremarkable. Mesenteric: Unremarkable. Peritoneum: Normal. Vessels: Unremarkable. Abdominal wall: Unremarkable. Bones: Unremarkable. IMPRESSION: 1. No acute abnormality to explain abdominal and back pain. 2. Basal uterus mass likely represents a fibroid and was present in the exam of 2018. ACT 112: Negative or not required by law. Electronically signed by: Seb Carver M.D. 08/09/2024 2:15 PM ECG Additional Comments: ECG revealed NSR at 69 bpm; QTc 458 Code Status & VTE Plan Code Status Full code VTE Prophylaxis Plan VTE Prophylaxis will be ordered: Yes Supervising Physician Co-Signing Physician Notes Patient seen and examined, chart reviewed, case discussed with Raúl Muñiz PA-C and I agree with the assessment and plan as above except as otherwise noted Labs and images reviewed 54-year-old female with a history of Sjogren's and uterine leiomyoma who presents with a syncopal episode of about 45 seconds. No prior history of seizure. Patient with lightheaded dizziness and a prodrome prior to passing out. She has had right back and flank pain worsening over the last 2 days. No history of kidney stones. CTA/P without overt evidence of Jonathan however patient does examine with flank tenderness radiating into the groin. UA is infected versus contaminated appearing with UCx pending. Lumbar spine CT does not show acute fracture or subluxation. She is treated empirically with Rocephin. Patient thinks that her syncopal episode caused by pain. May have had vasovagal response to pain worsened with volume contraction in the setting of UTI. She was hypotensive and normalized post fluids. She has CVA tenderness to percussion which radiates through her abdomen consistent with pyelo-, although CT is not consistent with this. She does not have radicular pain on palpation of the lumbar/T-spine although does note that she had some tailbone pain and radiating pain in her back previously which could represent nerve impingement/ muscle spasm. Agree with following UC and treatment above at this time. PG Care Time/CCT Total # of Minutes Spent Total Time Spent with Patient: Total time spent is greater than 50% in coordination of care (as documented) at patient's floor/unit and/or counseling patient: Coding [place] [address] INT INP/OBS CARE 3/75MIN Patient Type Established History Comprehensive Exam Comprehensive Medical Decision Making High Complexity Diagnoses Syncope R55 Pyelonephritis N12 Hypotension I95.9 Sjogren syndrome, unspecified M35.00 Hypothyroidism E03.9
[2024-08-09] MEDS: LACTATED RINGER'S 1,000 ML IV SCH (16:57)
--- OUTSIDE RECORDS SUMMARY | 2024-08-09 17:26 | External Medical Summary | Continuity of Care Document ---
Author Name Unknown Organization [facility] 1850 [facility] [address] [place] [id number] Care Team Providers Care Paving Inspector Name Role Phone KavyarafaelWendy Primary Care Physician [phone] Encounter [facility] [id number] Date(s): 07/26/24 - 07/26/24 [facility] 0 [facility] 207 [facility] [address] [address] [place] [phone] Encounter Diagnosis UTI symptoms(Discharge Diagnosis) - 07/26/24 Unspecified symptoms and signs involving the genitourinary system(Final) - Discharge Disposition: Home or Self Care Attending Physician: MIRANDA Meneses, Guillermina Bullard Allergies, Adverse Reactions, Alerts Substance Criticality Severity Reaction Reaction Severity Status gabapentin high anxiety Active Bactrim DS hives, chest pa in, dizziness, angioedema Active Immunizations Given and Recorded Vaccine Date Status Refusal Reason pneumococcal 20-valent conjugate vaccine 04/18/24 Recorded influenza virus vaccine, inactivated 09/10/23 Silverio rded influenza virus vaccine, inactivated 08/05/22 Silverio rded influenza virus vaccine, inactivated 09/06/20 Give n influenza virus vaccine, inactivated 09/07/19 Give n influenza virus vaccine, inactivated 07/21/18 Give n influenza virus vaccine, inactivated 08/20/17 Give n influenza virus vaccine, inactivated 07/18/16 Give n influenza virus vaccine, inactivated 09/12/15 Give n influenza virus vaccine, inactivated 09/26/14 Give n influenza virus vaccine, inactivated 08/08/13 Give n Zoster Vaccine Unspecified 11/20/21 Recorded Zoster Vaccine Unspecified 08/29/21 Recorded SARS COVID Vaccine Unspecified 03/21/21 Recorded SARS COVID Vaccine Unspecified 02/28/21 Recorded tetanus/diphtheria/pertuss, acel (Tdap) 12/06/14 G iven Medications cephalexin 500 mg oral capsule Start: 07/26/24 4:29:00 PM EDT, 1 cap, PO, bid, Disp# 14 cap, Pharmacy: [facility] [id number] [facility] Start Date: 07/26/24 Stop Date: 08/02/24 Status: Ordered hydroxychloroquine Start: 11/23/23 10:37:00 PM EST, 200 mg =, PO, Daily Start Date: 11/23/23 Status: Ordered levothyroxine 50 mcg (0.05 mg) oral tablet Start: 06/06/24 9:39:00 AM EDT, 1 tab, PO, Daily, Disp# 90 tab, Refills: 0, Pharmacy: [facility] Start Date: 06/06/24 Stop Date: 09/04/24 Status: Ordered levothyroxine 75 mcg (0.075 mg) oral tablet Start: 03/28/24 5:52:00 PM EDT, See Instructions, Disp# 90 tab, Refills: 3, 1 tab PO Daily Thursday through Thursday; Take one-half tab po Thursday and Thursday as a single daily dose before breakfast with plenty of water on an empty stomach, Note to Pharmacy: This is a change in dosing. Please discuss with pt, Pharmacy: 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 Active Fe deficiency anemia Confirmed Active Low back pain, unspecified Confirmed Active Right lumbar radiculopathy Confirmed Active Myofascial pain Confirmed Active Neck pain Confirmed Active Encounter for control pills maintenance Confirmed Active Weight disorder Confirmed Active Diagnosis Diagnosis Type Effective Dates Health Status Cl inical Service Informant UTI symptoms Discharge Diagnosis 07/26/24 Non-Specified Procedures Procedure Date Related Diagnosis Body Site Status Ultrasound 1 07/15/23 Completed Mammogram 2 07/08/23 Completed Plain X-ray of right shoulder 3 09/18/22 Completed X-ray of cervical spine 4 09/18/22 Completed MRI abd with and with contrast 5 09/04/22 Completed Colonoscopy 6 07/16/22 Completed Mammogram - screening 7 07/07/22 C ompleted Mammogram - screening 8 07/05/21 C ompleted Chest X-ray 9 03/29/[address] of chest 10 03/29/21 Completed ECG normal 11 03/29/[address] of head 12 03/25/21 Completed Mammogram - screening 13 04/04/20 Completed MRI of abdomen 14, 15 03/22/20 Com pleted MRI of abdomen 16, 17 02/22/19 Com pleted Mammogram - screening 18 12/28/18 Completed Magnetic resonance enterography-ABdomen/Pelvis 19 04/09/18 C ompleted Mammogram - screening 20 12/25/17 Completed MRI of abdomen 21 03/17/17 Complet ed Endoscopic --ultrasound 22, 23 09/19/16 Completed MRI of lumbar spine 24 09/12/16 Co mpleted X-ray 25 07/18/16 Completed X-ray 26 07/18/16 Completed PAP test date 27 01/28/16 Complete d MRI of abdomen 28 01/18/16 Complet ed Ultrasound 29 01/03/16 Completed Mammogram - screening 30 12/18/[address] angiography (chest) 31 12/17/15 Completed Mammogram in compression view 32, 33 12/28/14 Completed US - Ultrasound 34 12/28/14 Comple kalin Mammogram - screening 35, 36 12/15/14 Completed abdominalplasti Completed X 2 Completed Mammogram 37 Completed 1ULTRSOUND OF RIGHT BREAST IMPRESSION: ACR BI-RADS CATEGORY 2: BENIGN There is a 17.3 mm anechoic benign simple cyst in the 5:00 right breast, correlalting with the mammographic mass. No targeted sonographic evidence of malignancy. Recommend return to routine screeningschedule, due July 2024. 2IMPRESSION: ACR-BI-RADS CATEGORY 0: INCOMPLETE EVALUATION: NEED ADDITIONAL IMAGING EVALUATION Right breast mass, for which additional imaging evaluation is recommended. The patient will be called to schedule an appointment. 3IMPRESSION: No evidence of acute osseous injury. 4IMPRESSION: 1.No acute bony abnormality is seen involving the cervical spine. 2.Degenerative disc disease at C5 - C6 as above. 5Impression: No acute intra-abdominal abnormality. Stable subcentimeter cystic foci of the pancreas are redemonstrated suggestive of sidebranch IMPNs.Sidebranch IPMN versus mucinous cyst of the pancreatic head measure 1.4cm, previously 9mm on the 03/22/2020 exam. No enhancement or suspicious features. 6COLO to cecum, 2 mm polyp rectum, diverticulosis. 7There is no mammographic evidence of malignancy. A 1 year screening mammogram is recommended (07/08/2023) 8Impression: There is no mammographic evidence of malignancy. A 1 year screening mammogram is recommended. (07/06/2022). The patient will receive written notifcation of the results. 9no acute process 10no evidence for pulmonary embolus 11post concussion syndrome, syncope, inhalation of gaseous substance 12no acute intracranial abnormality 13Impression: There is no mammographic evidence of malignancy. A 1 year screening mammogram is recommended. (04/05/2021). The patient will receive written notification of the results. 141. Stable appearance of the multiple pancreatic cystic lesions measuring up to 11 mm. No worrisome features. Findings most consistent with intraductal papillary mucinous neoplasms or less likely mucinous cysts. Follow up per Fukuoka criteria 15Full report reviewed 9 mm cyst head no change vs 02/2019, 11 mm neck (was 12 mm), 5 mm body no change. 16Redemonstartion of the cystic lesions within the pancreas likely representing side branch IPMN. These are not significantly changed 17MRI report reviewed with conclusion stated. Comparison is MRI enterography 04/09/2018. 18Impression: There is no mammographic evidence of malignancy. A 1 year screening mammogram is recommended. The patient will receive written notification of the results. 19No evidence of active inflammation of the small or large bowel. No acute intra-abdominal pathology. Single dominant left anterior uterine wall intramural fibroid. Adenomyosis Stable subcentimeter pancreatic cystic lesions most likely small branch intraductal papillary mucinous neoplasms. Given their size and the lack of worrisome features and prior stability, no further F/U is recommended per Terence 2012 criteria. 20bilateral mammogram-ACR Bi-Rads Cat. 2: Benign There is no mammographic evidence of malignancy. a 1 yr screening mammogram is recommended. 21impression; Stable cystic lesions within the pancreas as described above. An additional one year MRI follow can be performed to ensure stability. 22Pathology results--clear colorless fluid: Pancreas, head (fine needle aspiration): 1) Flat sheets of cuboidal epithelial cells are seen. 2) The differetial diagnosis includes benign ductal epithelialcells of the pancreatic duct. Not otherwise specified and a serous cystadenoma. 3) The cytologic fea tures of intraductal papillary mucinous neoplasm are not seen 4) Please note this case has been reviewed by one of my colleagues in the department of pathology and he concurs with the rendered diagnosis. 5) Please see above discussion 23Pathology results: Pancreas, body (fine needle aspiration) 1) Begning flat sheets of epithelial cells, scattered histiocytes and scattered inflammatory cells are all seen 2) The sytologid features of an intraductal papillary mucinous neoplasm are not seen 3) Please note this case has been reviewed by on of my coleagues in the department of pathology andhe concurs with the rendered diagnosis. 4) Please see above discussion. 24Impression: There is no disc herniation, central canal stenosis, or neural foraminal narrowing identified throughout the lumbosacral spine. No destructive bony process is seen. 25L-spine No fx subluxations or destructive lesions are visualized 26right pelvic/unitlat hip Negative study 27Negative for intraepithelial lesion or malignancy. 28without contrast there are 2 adjacent cystic lesions within the body of the pancrease which correspond to the U/S abnomality. these connect to the main pancreatic duct are consistant with side branch intraductal papillary mucinous neoplasms. there is also a 9 X 8 mm cystic lesion abutting the anterior inferior surface of the pancreatic head. this does not appear to connect the pancreatic duct. Therefore this could represent a small mesenteric cyst, duplication cyst or an exophytic serous cystadenoma of the pancreas One year MRI f/u with contrast is recommended to ensure stability of thje cystic pancreatic/peripancreatic lesions. 292 Small cystic nofules within the pancreatic body. Multiphase CT or MRI of the abdomen with attention to the pancrease is suggested. 30Impression: There is no mammographic evidence of malignancy. A 1 year screening mammogram is recommended. The patient will receive written notification of the results. 311. No CT evidence for acute pulmonary embolus. 2. No evidence of aortic anearysm or dissection. 3. Probably multinodular thryoid. 32Impression: The new circumscribed mammographic mass in the left breast correlates with a benign simple cyst on ultrasound. There is no mammographic or targeted sonographic evidence of malignancy. A 1yur screening mammogram is recommended. The patient has been verbally notified of the results. 33Findings: Spot compression CC and MLO views of the left bR were obtained. There is persistence of awell-circumscribed oval 7 mm mass in the middle one third of the left breast, along the posterior nipple line on each view. No associated architectural distortion or clustered micro-clacificaions. 34Targeted ultrasound was performed in the subareolar left breast. There is an oval parallel anechoicbenign simple cyst measuring 4.6 x 5.5 x 3.9 mm. This correlates well with the location, size and shape of the new mammographic mass. It is benigh and needs no further workup. 35Impresssion: incomplete need prior studies for comparison Oval 7mm mass in thje left central breast, for which comparison with outside prior imaging is recommended. The patient is trying to obtain the outside imaging, and if/when prior imaging is obtained, an addendum will be made. If outside prior imaging cannot be obtained in a timely manner, recommend a dditional imaging evaluation with spot compression views and possibly ultrasound for further evaluation. 36Outside mammograms dated 08/19/2011 performed at [facility] in [facility], have become available for comparison, The previously described mass in the left central breast was not evident on the prior exam. Therefore additional imaging evaluation is recommended with spot compression view and breast US. The patient will be called to schedule an appointment.kf. 37Cat 2- Benign. recommend 1 year check-up Results Laboratory List Name Date Urine Chemstick POC Outpt. (UA Chemstick POC Outpt.) 07/26/24 Most recent to oldest [Reference Range]: 1 Glucose Urine Dipstick Ref Range [negati ve] (07/26/24 4:52 PM) Bilirubin Urine Dipstick Ref Range [nega tive] (07/26/24 4:52 PM) Specific [place] Urine Ref Range [No Nor mal Defined] (07/26/24 4:52 PM) Protein Urine Dipstick Ref Range [negati ve] (07/26/24 4:52 PM) pH Urine Dipstick Ref Range [4.5 - 8.0] (07/26/24 4:52 PM) Ketones Urine Dipstick Ref Range [negati ve] (07/26/24 4:52 PM) Blood Urine Dipstick Ref Range [negative ] (07/26/24 4:52 PM) Urobilinogen Urine Dipstick Ref Range [0 .2 - 1.0 mg/dL] (07/26/24 4:52 PM) Nitrites Urine Dipstick Ref Range [negat oli] (07/26/24 4:52 PM) Leukocytes Urine Dipstick Ref Range [neg ative] (07/26/24 4:52 PM) U Leuk Est Small (07/26/24 4:52 PM) U Nitrite Negative (07/26/24 4:52 PM) U Urobilinogen 0.2 mg/dl (07/26/24 4:52 PM) U Protein Negative (07/26/24 4:52 PM) U pH 7 (07/26/24 4:52 PM) U Blood Small (07/26/24 4:52 PM) U Spec Grav 1.015 1 (07/26/24 4:52 PM) U Ketones Negative (07/26/24 4:52 PM) U Bili Negative (07/26/24 4:52 PM) U Gluc Negative (07/26/24 4:52 PM) U Appear Slightly cloudy (07/26/24 4:52 PM) Urine color urine dipstick Yellow (07/26/24 4:52 PM) 1Result Comment: Performed at: [facility], [address] [place] [address], [address], [place] [address] Orders for Microbiology Reports Name Date Urine Culture (CULTURE, URINE) 07/26/24 Microbiology Reports TEST:Urine.Cx STATUS:Unauthenticated BODY SITE: SOURCE:Urine COLLECTED DATE/TIME:07/26/24 4:26 PM Culture NO GROWTH 1 DAY Vital Signs Most recent to oldest [Reference Range]: 1 Patient Weight 57.7 kg (07/26/24 4:17 PM) Temperature [36.5-37.9 DegC] 36.8 DegC (07/26/24 4:17 PM) Blood Pressure 117/74mmHg (07/26/24 4:17 PM) BP Location # 1 Left Arm (07/26/24 4:17 PM) Social History Social History Type Response Smoking Status Never smoked cigaret ignacio Sex Female Sex Representation Female (finding) Patient Care team information Care Team Personnel Name: MD Joyce, Wendy Position: Physician - Family Med Member Role: Primary Care Provider Address: [address] [place] [phone] [place] Name: Darin Arrington Position: HIS Supervisor_P Member Role: HIS Lifetime Care Team Related Persons Name: SAFIA JAIME Name: TRINY JAIME Name: TRINY JAIME
[2024-08-09] MEDS: HYDROXYCHLOROQUINE SULFATE 200 MG TAB PO STA (18:02)
[2024-08-09] MEDS ORDERED: ONDANSETRON INJ 2 MG/ML 2 ML VIAL IV PRN (20:17)
[2024-08-09] MEDS ORDERED: oxyCODONE HCL IR 5 MG TAB (IMMEDIATE RELEASE) PO PRN (20:17)
[2024-08-09] MEDS: ACETAMINOPHEN 325 MG TAB PO PRN (20:32)
[2024-08-09] MEDS: ACETAMINOPHEN 325 MG TAB ONE (20:33)
[2024-08-09] MEDS: ENOXAPARIN INJ 40 MG/0.4 ML SYR SQ SCH (21:49)
[2024-08-10] MEDS: oxyCODONE HCL IR 5 MG TAB (IMMEDIATE RELEASE) PO PRN (05:59)
[2024-08-10] MEDS: LEVOTHYROXINE SODIUM 50 MCG TABLET PO SCH (05:59)
[2024-08-10 07:18] LABS: BUN Creatinine Ratio 18.1 (10-20); Calcium 9.3 mg/dl (8.6-10.3); Creatinine Clr Calc Pharmacy 71.9 ml/min; Est GFR (Non-African American) 94.9 ml/min; Potassium 4.1 mmol/L (3.5-5.1)
[2024-08-10 07:19] LABS: Basophils # (auto) 0.03 K/uL (0.00-0.20); Basophils % (auto) 0.5 %; Eosinophils # (auto) 0.16 K/uL (0.00-0.50); Eosinophils % (auto) 2.8 %; Hematocrit (blood only) 35.7 % (37.0-47.0); Hemoglobin 11.9 g/dl (12.0-16.0); Immature Granulocytes # (auto) 0.01 K/uL (0.01-0.20); Immature Granulocytes % (auto) 0.2 %; Lymphocytes % (auto) 36.2 %; Mean Corpuscular Hemoglobin 30.6 pg (25.0-34.0); Mean Corpuscular Hgb Conc 33.3 g/dL (32.0-36.0); Mean Corpuscular Volume 91.8 fL (80.0-100.0); Monocytes # (auto) 0.39 K/uL (0.11-0.59); Monocytes % (auto) 6.7 %; Neutrophils # (auto) 3.11 K/uL (1.40-6.50); Neutrophils % (auto) 53.6 %; Platelet Count 243 K/uL (130-400); RDW Coefficient of Variation 13.8 % (11.5-14.5); RDW Standard Deviation 46.7 fL (36.4-46.3); Red Blood Count 3.89 M/uL (4.20-5.40)
--- NOTE | 2024-08-10 08:01 | Hospitalist Progress Note ---
Date of Service August 10, 2024 Assessment & Plan (1) Syncope: (2) Pyelonephritis: (3) Hypotension: (4) Sjogren syndrome, unspecified: (5) Hypothyroidism: (6) Leiomyoma of uterus: Plan 54-year-old female with a history of Sjogren's and uterine leiomyoma who presents with a syncopal episode of about 45 seconds. [Pre] Syncope - Morning of 08/09, patient felt dizzy / about to faint and sat down; event observed by son who reports she recovered after 45 sec, but then vomited, no head strike - No history of syncope - Normotensive, BMP wnl, TTE normal - Continuous telemetry monitoring Pyelonephritis - Clinical suspicion based on recent UTI, worsening of right flank pain, radiation to the groin - Patient recently finished a course of Keflex 500 mg p.o. BID x 7 days for UTI (Rx on 07/26) - Afebrile; no leukocytosis; sx of dysuria and hematuria have resolved - CT A/P w con showed no acute abnormality - UA positive on ED arrival, UCx pending - L spine CT showed no acute fracture or subluxation; mild levoscoliosis - on Rocephin 2000 mg IV q24h Hypotension - Mildly hypotensive down to 85/65 in the ED on arrival - Responded to IV fluids; NSS 1000 mL x 2 + 1000mL LR - Now stabilized wnl Sjogren syndrome - Continue hydroxychloroquine Hypothyroidism - Continue levothyroxine Uterine leiomyoma - CT A/P 08/09 showed basal uterus mass, which was present in 2018 Full code Regular diet VTE PPx: SCDs Admission and Anticipated Discharge Date Admission Date: August 09, 2024 Supervising Physician Co-Signing Physician Notes Attending attestation Pt seen and examined in concert with Dr. Lockhart. In agreement with the documented findings as noted in the resident documentation with any exceptions or additions as noted here. Resting in bed with pain well controlled on combination of oxycodone and APAP orally without urinary symptoms reported at present. On examination, S1/S2 nl RRR no MCG. CTAB. Abd NT/ND BS+ve. ++ve CVA TTP on evaluation c/w ascending UTI without MSK spasm or TTP appreciated. Syncope/Presyncope - evaluate with echocardiogram and trend BMP, CBC in AM for status Presumed complicated urinary tract infection - follow up cultures, continue IV rocephin as symptoms are improving and monitor w/ consideration for repeat imaging or broaden abx if worsening Else see resident documentation as noted. Subjective Nicole is feeling well this morning. She says her pain was severe earlier in the morning, but improved significantly after getting oxy 10mg at 5:59. Denies SANTOS, dizziness, changes in vision or hearing, SOB, CP, n/v/c/d, abd pain, dysuria, joint or muscle aches. She describes her sx as a sharp/shooting pain in her R flank/lower back that sometimes radiates anteriorly to her groin. It has been worsening the past ~2 days. She reports the pain is so intense in the mornings that she is unable to move her feet or turn her head (without exacerbating the pain), and before her syncopal episode, the pain was so excruciating that her vision and hearing went out and she "blacked out" while her son helped her to sit. Her family was present at bedside, and her son reports that she had to roll onto her stomach to get out of bed yesterday, but then she did well for a while after getting up and was able to go to the bathroom and get dressed. She then came out, felt unstable, and told him to help her sit. He states she "passed out" for less than a minute. When she recovered from that, she began vomiting, which is when he called 911. Review of Systems 2 Review of Systems: Per HPI Physical Exam 2 Physical Exam: Gen: pleasant, resting comfortably, no acute distress HEENT: NCAT, PERRL, EOMI CV: RRR, no m/r/g, S1/S2 normal Resp: CTAB, symmetrical chest rise, breathing non-labored Abd: Soft, nondistended +BS, no HSM, no suprapubic or CVA tenderness MSK: No gross deformities Skin: Warm, dry, pink, no rashes or lesions Neuro: AOx3, no focal neuro deficits Psych: Mood-affect congruent. Speech pace and content normal. Results & Data Results & Data Vital Signs (Past 12 Hours) Vital Signs Temp Pulse Pulse Resp BP Pulse Ox O2 Del Method 08/10/24 07:40 36.7 C 60 16 122/75 97 Room Air 08/10/24 07:22 58 L 08/10/24 04:00 36.6 C 65 20 124/78 96 Room Air 08/10/24 00:08 36.5 C 64 20 127/79 97 Room Air 08/09/24 23:37 66 08/09/24 20:19 36.5 C 81 16 141/84 H 99 Room Air 08/09/24 20:15 81 Laboratory Results 08/10/24 06:00 08/10/24 06:00 Resident Activity Tracking Resident Involvement: Resident Care Provided Care Provided: Adult Hospital Medicine
[2024-08-10] MEDS: HYDROXYCHLOROQUINE SULFATE 200 MG TAB PO SCH (08:10)
--- NOTE | 2024-08-10 15:59 | XCELERA ---
[id number] [id number]
[2024-08-10] MEDS: ACETAMINOPHEN 500 MG TAB PO SCH (16:07)
[2024-08-10] MEDS: cefTRIAXone SODIUM 2,000 MG/50 ML BAG IV SCH (16:08)
[2024-08-11 07:07] LABS: Basophils # (auto) 0.05 K/uL (0.00-0.20); Basophils % (auto) 1.1 %; Eosinophils # (auto) 0.19 K/uL (0.00-0.50); Eosinophils % (auto) 4.1 %; Hematocrit (blood only) 35.4 % (37.0-47.0); Hemoglobin 12.1 g/dl (12.0-16.0); Immature Granulocytes # (auto) 0.01 K/uL (0.01-0.20); Immature Granulocytes % (auto) 0.2 %; Lymphocytes # (auto) 1.76 K/uL (1.20-3.40); Lymphocytes % (auto) 37.8 %; Mean Corpuscular Hemoglobin 31.3 pg (25.0-34.0); Mean Corpuscular Hgb Conc 34.2 g/dL (32.0-36.0); Mean Corpuscular Volume 91.7 fL (80.0-100.0); Mean Platelet Volume 10.9 fL (9.4-12.4); Monocytes # (auto) 0.31 K/uL (0.11-0.59); Monocytes % (auto) 6.7 %; Neutrophils # (auto) 2.33 K/uL (1.40-6.50); Neutrophils % (auto) 50.1 %; Platelet Count 236 K/uL (130-400); RDW Coefficient of Variation 13.8 % (11.5-14.5); RDW Standard Deviation 46.9 fL (36.4-46.3); Red Blood Count 3.86 M/uL (4.20-5.40); White Blood Count 4.65 K/ul (4.8-10.8)
[2024-08-11 07:20] VITALS: RESP 18
[2024-08-11 07:24] LABS: BUN Creatinine Ratio 27.3 (10-20); Calcium 9.3 mg/dl (8.6-10.3); Creatinine Clr Calc Pharmacy 67.1 ml/min
--- NOTE | 2024-08-11 10:06 | Hospitalist Progress Note ---
Date of Service August 11, 2024 Assessment & Plan (1) Syncope: (2) Pyelonephritis: (3) Hypotension: (4) Sjogren syndrome, unspecified: (5) Hypothyroidism: (6) Leiomyoma of uterus: Plan 54-year-old female with a history of Sjogren's and uterine leiomyoma who presents with a syncopal episode of about 45 seconds. [Pre] Syncope - Morning of 08/09, patient felt dizzy / about to faint and sat down; event observed by son who reports she recovered after 45 sec, but then vomited, no head strike - No history of syncope - Normotensive, BMP wnl, TTE normal - Continuous telemetry monitoring Pyelonephritis - Clinical suspicion based on recent UTI, worsening of right flank pain, radiation to the groin - Patient recently finished a course of Keflex 500 mg p.o. BID x 7 days for UTI (Rx on 07/26) - Afebrile; no leukocytosis; sx of dysuria and hematuria have resolved - CT A/P w con showed no acute abnormality - L spine CT showed no acute fracture or subluxation; mild levoscoliosis - UA positive on ED arrival; UCx showed 3 types of skin marisol, no sensitivities to follow - on Rocephin 2000 mg IV q24h - 1000mg apap q8h, 30mg toradol q6h prn, and 10mg oxycodone q6h prn available for pain Hypotension - Mildly hypotensive down to 85/65 in the ED on arrival - Responded to IV fluids; NSS 1000 mL x 2 + 1000mL LR - Now stabilized wnl Sjogren syndrome - Continue hydroxychloroquine Hypothyroidism - Continue levothyroxine Uterine leiomyoma - CT A/P 08/09 showed basal uterus mass, which was present in 2018 Full code Regular diet VTE PPx: SCDs Admission and Anticipated Discharge Date Admission Date: August 10, 2024 Supervising Physician Co-Signing Physician Notes Attending attestation Pt seen and examined in concert with Dr. Lockhart. In agreement with the documented findings as noted in the resident documentation with any exceptions or additions as noted here. Resting in bed with pain well controlled on combination of oxycodone and APAP orally without urinary symptoms reported at present. On examination, S1/S2 nl RRR no MCG. CTAB. Abd NT/ND BS+ve. ++ve CVA TTP on evaluation c/w ascending UTI without MSK spasm or TTP appreciated. Syncope/Presyncope - evaluate with echocardiogram and trend BMP, CBC in AM for status Presumed complicated urinary tract infection - follow up cultures, continue IV rocephin as symptoms are improving and monitor w/ consideration for repeat imaging or broaden abx if worsening Else see resident documentation as noted. Subjective She slept well last night and felt much better this morning, but then felt a "twinge" in her back on the way back from the bathroom, which quickly grew into an intense pain at her left mid-back. The pain had subsided but she was still tearful when we spoke. She reports still feeling some spasms in her back. Sx were relieved with oxycodone. No SANTOS, dizziness, SOB, CP, n/v/c/d, abd pain, dysuria, hematuria, muscle or joint aches. Review of Systems Review of Systems: Per HPI Physical Exam Physical Exam: Gen: pleasant, resting comfortably, no acute distress HEENT: NCAT, PERRL, EOMI CV: RRR, no m/r/g, S1/S2 normal Resp: CTAB, symmetrical chest rise, breathing non-labored Abd: Soft, nondistended +BS, no HSM, no suprapubic or CVA tenderness, no palpable mass/tension or ttp at area indicated as painful MSK: No gross deformities Skin: Warm, dry, pink, no rashes or lesions Neuro: AOx3, no focal neuro deficits Psych: Mood-affect congruent. Speech pace and content normal. Results & Data Results & Data Vital Signs (Past 12 Hours) Vital Signs Temp Pulse Pulse Resp BP BP Pulse Ox 08/11/24 07:20 36.5 C 66 18 123/82 98 08/11/24 07:00 56 L 08/11/24 03:36 36.6 C 64 16 101/60 96 08/11/24 00:09 63 08/10/24 23:36 36.7 C 69 18 92/62 L 98 O2 Del Method 08/11/24 07:20 Room Air 08/11/24 07:00 08/11/24 03:36 Room Air 08/11/24 00:09 08/10/24 23:36 Room Air Resident Activity Tracking Resident Involvement: Resident Care Provided Care Provided: Adult Hospital Medicine
[2024-08-11 11:44] LABS: Magnesium 2.1 mg/dl (1.7-2.4)
[2024-08-11] MEDS ORDERED: KETOROLAC 30 MG/ML VIAL IV PRN (13:12)
[2024-08-11] MEDS: ACETAMINOPHEN 500 MG TAB PO PRN (13:16)
[2024-08-11 15:51] VITALS: PULSE 67; TEMP 97.3; O2SAT 98
--- NOTE | 2024-08-11 17:57 | Discharge Summary ---
Date of Service August 11, 2024 Admission HPI Per Admitting Provider Nicole is a 54-year-old female with PMH of Sjogren's syndrome, and uterine leiomyomas. She presented on 08/09 for a syncopal episode. Patient passed out for approximately 45 seconds around 9 AM this morning. Son was present at the time and witnessed the event. Patient reports that she "knew" that she was going to pass out as she developed blurry vision, dizziness, and her hearing went out. She then sat down in a chair and syncopized with full LOC. No head strike. She denies any prior episodes of fainting. Son did not witness any seizure-like activity. Patient believes she passed out secondary to her right lower back and flank pain, which is gotten worse over the past 2 days. She was recently treated with Keflex 500 mg p.o. BID x 7 days for UTI, and reports that she completed the course. Her burning with urination/blood in urine has resolved, however 2 days ago she developed worsening right back pain. She did not have back pain with the initial UTI. She describes the right lower back and flank pain as constant, sharp, and stabbing. The pain radiates around the flank and down towards her groin. It is exacerbated by movements, and she will eventually have spasms. She initially thought she might of pulled something, but denies any recent strenuous activity. She saw a doctor yesterday and was prescribed cyclobenzaprine 5 mg p.o. as needed for back spasms, but this has not helped. She rates the pain 10/10 at worst, 2/10 in the ED after receiving pain medication. She has not been taking any pain medicine at home; no recent NSAID use. She denies smoking, tobacco use, or recent alcohol use. She took her regular morning medications today; only recent change in medication was that her levothyroxine was decreased from 75 mcg --> 50 mcg daily. She is not currently on steroids for her Sjogren's. Patient denies prior history of kidney stones. Patient is hypotensive at 88/54 at time of admission; vitals otherwise stable. ED course: Rocephin 2000 mg IV NSS 1000 mL IV x 2 Toradol 10 mg IV Morphine 4 mg IV ROS: Patient endorses dizziness, blurry vision, syncope (which patient attributes to the right lower back pain), mild SANTOS, nausea/vomiting after passing out, Patient denies fever, chills, night-sweats, chest pain, SOB, cough, abdominal pain, diarrhea, changes in urine/stool habits, burning with urination (resolved), blood in urine/stool, saddle anesthesia, or numbness/tingling in the arms or legs. Admission Exam Per Admitting Provider General: no acute distress; pleasant affect; anxious; non-toxic appearing; well- nourished; cooperative; SpO2 N/A percent on RA HEENT: normocephalic, atraumatic; no scleral icterus; PERRLA; vision and hearing grossly intact Neck: supple; no lymphadenopathy; trachea midline Skin: warm, dry without signs of tenting; no cyanosis; no rashes, bruising, lesions, or erythema noted CV: chest wall NTP; RRR; S1/S2 normal; no murmurs/rubs/gallops; pulses intact and symmetric at radial, DP, and PT Lungs: no acute respiratory distress; symmetrical chest wall expansion; clear breath sounds across all lung florian w/o adventitious sounds; no wheezing ABD: Soft, NTP; BS present; no rebound/guarding; no distention; no rashes or bruising on the abdomen, flanks, or back Back: Upper spine NTP, lower spine NTP; negative CVA tenderness bilaterally MSK: no tics or fasciculations; no edema noted in the LEs b/l, nonerythematous Neuro: A&Ox3; normal mood and affect; fluent speech; no focal deficits; sensation grossly intact and symmetric in the LEs b/l Principal Diagnosis Ascending UTI Discharge Exam Gen: alert, lying in bed, in intermittent pain/distress from spasms HEENT: NCAT, PERRL, EOMI CV: RRR, no m/r/g, S1/S2 normal Resp: CTAB, symmetrical chest rise, breathing non-labored Abd: Soft, NT/ND, +BS, no suprapubic or CVA tenderness MSK: Full ROM, no gross deformities, no lower back ttp Skin: Warm, dry, pink, no rashes or lesions Neuro: AOx3, CN II-XII grossly intact Psych: Mood-affect congruent. Speech pace and content normal. Discharge Data Allergies Allergy/AdvReac Type Severity Reaction Status Date / Time gabapentin Allergy Intermediate DIzziness Verified 03/04/24 11:49 and severe anxiety Consultations 08/09/24 15:47 ED Decision to Admit Stat Ordered Studies 08/11/24 06:16 08/11/24 06:16 UA notable for 1+ ketones, trace blood, 3+ leuk esterase, >50 WBC/hpf, 3-5 epi cells/hpf UCx: Three types of organisms present, all high counts probable skin marisol. No further identifications or sensitivities to follow. 08/09/24 10:11 CT lumbar spine w con Stat 1. No acute lumbar spine fracture or subluxation. 2. Mild levoscoliosis. 3. Please refer to the same day CT abdomen and pelvis study for additional findings. 08/09/24 12:26 CT Abd and Pelvis [CT abd pelvis IV con only] Stat 1. No acute abnormality to explain abdominal and back pain. 2. Basal uterus mass likely represents a fibroid and was present in the exam of 2018. Hospital Course (1) Syncope: (2) Pyelonephritis: (3) Hypotension: (4) Sjogren syndrome, unspecified: (5) Hypothyroidism: (6) Leiomyoma of uterus: Plan [Pre] Syncope - Morning of 08/09, patient felt dizzy / about to faint and sat down; event observed by son who reports she recovered after 45 sec, but then vomited, no head strike - No history of syncope - Normotensive, BMP wnl, TTE normal, no abnormalities noted on telemetry Pyelonephritis - Clinical suspicion based on recent UTI, worsening of right flank pain, radiation to the groin - Patient recently finished a course of Keflex 500 mg p.o. BID x 7 days for UTI (Rx on 07/26) - Afebrile; no leukocytosis; sx of dysuria and hematuria have resolved - CT A/P w con showed no acute abnormality - L spine CT showed no acute fracture or subluxation; mild levoscoliosis - UA positive on ED arrival; UCx showed 3 types of skin marisol, no sensitivities to follow - During stay: on Rocephin 2000 mg IV q24h; 1000mg apap q8h, 30mg toradol q6h prn, and 10mg oxycodone q6h prn available for pain - After discharge: Bactrim DS BID x 7d; 1000mg apap q8h, 600 ibuprofen q6-8h as needed for residual pain, 10mg oxycodone as needed for severe, unremitting pain Hypotension - Mildly hypotensive down to 85/65 in the ED on arrival - Responded to IV fluids; NSS 1000 mL x 2 + 1000mL LR - Stabilized, wnl by time of discharge Sjogren syndrome - Continue hydroxychloroquine Hypothyroidism - Continue levothyroxine Uterine leiomyoma - CT A/P 08/09 showed basal uterus mass, which was present in 2018 Total Time Total Time Spent Total Time Spent (In Minutes): .att2 Discharge Plan Discharge Items Patient Disposition: Home - Self-Care Reason For Visit: SYNCOPE, R BACK/FLANK PAIN Discharge Diagnosis: Ascending UTI Activity: Per Instructions section Non-emergency contact: Primary Care Provider Call non-emergency contact if: you have any medication questions, your symptoms worsen and your temperature is above 101 Follow-up/Referrals: Wendy Cook MD [Primary Care Provider] - Diet: Regular Addtl Attending Provider Instructions: You were admitted to the hospital for severe right flank pain, after being treated for a UTI. Your initial labs showed that the infection had not resolved. You were given IV antibiotics (Rocephin) with a slightly different coverage than the Keflex you took previously. We also did a urine culture, which did not yield any particular bacteria, but tested positive for multiple that should be covered by the antibiotic we are sending you home with. We will send to your pharmacy a prescription for Bactrim DS (sulfamethoxazole- trimethoprim). Take one tab twice daily for 7 days. We also gave you IV medications for your pain. The primary, foundational pain control was achieved with tylenol. We had IV Toradol for the inflammation and any remaining pain. Oxycodone was reserved for severe pain not relieved by the other medications. This regimen can translate to oral pain medications: Take 1000mg of Tylenol (2 x 500mg extra strength tablets) every 6 hours For any leftover pain, take Advil (ibuprofen) 600mg every 6-8 hours as needed We are also sending a prescription for oxycodone to your pharmacy. Keep in mind, this medication is reserved for intense pain that is not relieved by other medicine, and should be used as a last resort. Make a follow-up appointment with your PCP within the next week. It is very important that you follow up with them shortly after discharge from the hospital. At that appointment, you can evaluate the severity of your symptoms and the need for any further testing or treatment. A discharge summary will be sent to your primary care physician to ensure continuity of care. Your medication list has been reviewed and reconciled upon discharge, and an updated list of all your medications is included with your hospital discharge paperwork. Contact your PCP if your symptoms worsen or you have pain while urinating or blood in your urine. If unable to reach her, come to the ER for prompt evaluation. Also go to the ER if you experience any of the following: Sudden, severe abdominal pain or nausea/vomiting Severe chest pain, or chest pain that radiates (moves) to your jaw or arm Sudden, severe shortness of breath or difficulty breathing Thank you for allowing us to participate in your care. Pending Studies at Discharge: No Stand-Alone Forms: My [employer], Smoking Cessation Medications and DC Order Prescriptions: New sulfamethoxazole-trimethoprim [Bactrim DS] 800-160 mg tablet 1 tab PO BID 7 Days Qty: 14 0RF Continued hydroxychloroquine 200 mg tablet 200 mg PO DAILY Qty: 90 2RF levothyroxine 75 mcg capsule 50 mcg PO DAILY Discharge Orders: Discharge Order (Routine); Ordered 08/11/24 Ordered By: Lilia Lockhart Admission Data Admit Date/Time: 08/10/24 15:57 Attending Provider: Jamarcus Mckenzie Admit Provider: Alexx Odom Primary Care Provider: Wendy Cook Other Providers: Alexx Odom Supervising Physician Co-Signing Physician Notes Attending attestation Pt seen and examined in concert with Dr. Lockahrt. In agreement with the documented findings as noted in the resident documentation with any exceptions or additions as noted here. Ongoing improvement in frequency and severity of back pain/abdominal pain without return of nausea or fatigue. On examination, S1/S2 nl RRR no MCG. CTAB. Abd NT/ND BS+ve. Complicated UTI - UCx marisol contaminant but improved on ceftriaxone. Taper to Bactrim to complete course with precautions for worsening/changing sx. Syncope/Presyncope - echocardiogram without apparent etiology, no changes on telemetry. Encourage outpatient follow up. Else see resident documentation as noted. Total attending physician time spent with this patient's care on the day of discharge: 40 minutes. Resident Activity Tracking Resident Involvement: Resident Care Provided Care Provided: Adult [facility]
[2024-08-11 18:27] VITALS: BP 101/60
== END 2024-08-11 18:37 | disposition home or self-care (01) | DRG 690 ==
LOC: 2N 09:56 → ED 09:56 → SUATTDRO 16:34 → 2N 19:50